=== PATIENT | male | born 1985 | race Caucasian/White ===

== ENCOUNTER 2016-07-04 19:05 | Emergency (ER) | payer OTHER | END 2016-07-04 20:51 | disposition home or self-care (01) | LOC: ED 19:05 | DX: R06.02 Shortness of breath (principal); J45.909 Unspecified asthma, uncomplicated; F17.210 Nicotine dependence, cigarettes, uncomplicated; Z53.21 Procedure and treatment not carried out due to patient leaving prior to being seen by health care provider ==

== ENCOUNTER 2016-08-13 16:36 | Emergency (ER) | payer OTHER ==
--- NOTE | 2016-08-13 17:11 | RAD ---
Name: LUANA WADE Exam: Left shoulder Comparison: None Clinical history: Chronic left shoulder pain Findings: 3 views of the left shoulder are submitted. Bone density is normal. Acromioclavicular, coracoclavicular and glenohumeral joints are normal. Subacromial space is maintained. There is no fracture, dislocation or suspicious soft tissue calcification. Visualized portion of the left lung is clear. Impression: Negative left shoulder
[2016-08-13] MEDS ORDERED: KETOROLAC TROMETHAMINE 60 MG/2 ML VIAL ONE (17:53)
== END 2016-08-13 18:19 | disposition home or self-care (01) ==
LOC: ED 16:36
DX: S43.002A Unspecified subluxation of left shoulder joint, initial encounter (principal); J45.909 Unspecified asthma, uncomplicated; F17.210 Nicotine dependence, cigarettes, uncomplicated; X50.0XXA Overexertion from strenuous movement or load, initial encounter; Y92.810 Car as the place of occurrence of the external cause
CPT/HCPCS: 73030; 99283 ×2; 96372; J1885